=== PATIENT | male | born 1970 | race Caucasian/White ===

== ENCOUNTER 2017-06-11 18:46 | Emergency (ER) | payer BC ==
--- NOTE | ~2017-06-11 | ER ---
PATIENT'S NAME: BRYAN [facility] AGE: 47 Y [address] ROOM: [place] [address] LOCATION: [facility] ADMIT DATE: 06/11/2017 ER/Outpatient Report DISCHARGE DATE: 06/11/2017 FAMILY PHYSICIAN: Zion Zhao MD ATTENDING PHYSICIAN: Maame Dila TIME SEEN: 1900. CHIEF COMPLAINT: Low back pain. HISTORY OF PRESENT ILLNESS: The patient is a 47-year-old male, who presents complaining of low back pain. He said yesterday he started noticing some right flank pain and then today it progressed to both sides of his back. The patient did experience some nausea. During the last 24 hours, there is no vomiting. Quality patterson, the pain is described as sharp similar to when he had a kidney stone. The patient denies any radicular pain to the groin or lower extremities. ALLERGIES: NONE. HOME MEDICATIONS: None. PAST MEDICAL HISTORY: History of hypertension and previous kidney stones. PAST SURGICAL HISTORY: None. SOCIAL HISTORY: He is a morgan. Does not smoke or use alcohol. He is . is present. REVIEW OF SYSTEMS: GENERAL: Denies fevers or chills. HEENT: No history of migraines or recent sore throats. RESPIRATORY: Denies any shortness of breath or cough. CARDIOVASCULAR: No chest pain. No heart palpitations. GASTROINTESTINAL: Denies any weight loss or change in his bowel habits. GENITOURINARY: No dysuria. No testicular pain. Yesterday, he did experience some flank pain. MUSCULOSKELETAL: Includes pain across his low back. NEUROLOGIC: No numbness or tingling to his lower extremities. PATIENT'S NAME: BRYAN [facility] AGE: 47 Y [address] ROOM: [place] [address] LOCATION: [facility] ADMIT DATE: 06/11/2017 ER/Outpatient Report DISCHARGE DATE: 06/11/2017 FAMILY PHYSICIAN: Zion Zhao MD ATTENDING PHYSICIAN: Maame Dial PHYSICAL EXAMINATION: VITAL SIGNS: His initial blood pressure was 170/101 and at discharge it was 145/94, his temperature is 97.9, his respiratory rate , pulse 76, O2 sats 95% on room air. GENERAL APPEARANCE: He was standing, seen uncomfortable, holding his back, otherwise he was alert, appeared healthy. HEENT: Head: Normocephalic. Eyes: PERRLA. No icterus. Nose: Airways patent. Mouth: Oral membranes moist. LUNGS: Clear at the bases. HEART: Rhythm appeared regular. ABDOMEN: Soft. No tenderness. No guarding. No presence of mass. No CVA tenderness. MUSCULOSKELETAL: Back somewhat tender across his low back which seemed worse with movement. NEUROLOGIC: Good sensations to his lower back. LABORATORY DATA AND X-RAYS: CMS: Glucose slightly elevated at 110 otherwise normal. CBC: White count 7.8, hemoglobin 15.3. ANC was 9.4. Urine was clear. There were negative blood. CT of the abdomen and pelvis without contrast. Dr. Mckeon reported no evidence of any ureteral stones. He does have a stone in his left kidney. There was no evidence of any obstruction. His appendix appeared normal. There were no other positive findings. ASSESSMENT: 1. Low back pain. 2. Previous history of kidney stones. 3. Hypertension. PLAN: Treatment in the emergency room initially for pain. We did start an IV. He was given a liter of fluid. He was given 30 of Toradol IV as well as 4 morphine IV. The patient discharged home with instructions ice or heat to the low back. We did give him a script for Flexeril 10 mg t.i.d. and Naprosyn 500 b.i.d. Recommend he follow up with Dr. Zhao in the next 24 to 48 hours especially if he is not improving or any concerns. The patient appeared to verbalize understanding of our findings, lab work, CT report, and recommendations and agreed. [employer] FOR MAAME DIAL DO PATIENT'S NAME: JERMAINE ADAMS [facility] AGE: 47 Y [address] ROOM: [place] [address] LOCATION: ED ADMIT DATE: 06/11/2017 ER/Outpatient Report DISCHARGE DATE: 06/11/2017 FAMILY PHYSICIAN: Zion Zhao MD ATTENDING PHYSICIAN: Maame Dial/floresl /[id number] d: 06/12/17 0004 t: 06/12/17 2306, OUTPATIENT REPORT
[2017-06-11 19:20] LABS: BASOPHIL # 0.1 K/uL (0.0-0.2); BASOPHIL % 0.8 %; EOSINOPHIL # 0.3 K/uL (0.0-0.5); EOSINOPHIL % 3.4 %; HEMATOCRIT 44.6 % (37.0-53.0); HEMOGLOBIN 15.3 g/dL (12.0-17.0); IMMATURE GRANULOCYTE % 0.5 %; LYMPHOCYTE # 1.9 K/uL (0.8-4.0); LYMPHOCYTE % 23.8 %; MCHC 34.3 gm/dL (32.0-36.5); MCV 87.5 fl (83.0-98.0); MONOCYTE # 0.6 K/uL (0.0-1.0); MPV 11.1 fl (9.4-12.4); NEUTROPHIL # (ANC) 4.9 K/uL (1.4-9.0); NEUTROPHIL % 63.5 %; NRBC % 0 /100WBC (0-0.00); PLATELET COUNT 194 K/uL (150-450); RDW-CV 12.7 % (11.9-14.6); WBC 7.8 K/uL (4.0-11.0)
[2017-06-11 19:21] LABS: BILIRUBIN URINE NEGATIVE (NEGATIVE); BLOOD URINE NEGATIVE /UL (NEGATIVE); COLOR URINE YELLOW (YELLOW); GLUCOSE URINE NEGATIVE (NEGATIVE); KETONE URINE NEGATIVE (NEGATIVE); LEUKOCYTES URINE NEGATIVE /UL (NEGATIVE); NITRITE URINE NEGATIVE (NEGATIVE); PH URINE 6.5 (4.0-8.0); PROTEIN URINE NEGATIVE (NEGATIVE); TURBIDITY URINE CLEAR (CLEAR); UROBILINOGEN URINE NORMAL (NORMAL)
[2017-06-11 19:39] LABS: ALBUMIN 3.9 gm/dL (3.5-5.0); ANION GAP 10.9 (10.0-19.0); CALCIUM 8.8 mg/dL (8.5-10.5); POTASSIUM 3.9 mMol/L (3.7-5.1); TOTAL BILIRUBIN 0.4 mg/dL (0.0-1.5)
== END 2017-06-11 20:46 | disposition disaster alternative care site (69) ==
LOC: GMED 18:46
PROVIDERS: Emergency Medicine; Physician Assistant Medical
DX: M54.5 Low back pain (principal); I10 Essential (primary) hypertension; Z87.442 Personal history of urinary calculi
CPT/HCPCS: J1885; J2270; J2405; J7030